=== PATIENT | female | born 1975 | race African-American/Black ===

== ENCOUNTER 2017-07-03 08:42 | Inpatient (IN) | payer MEDICAID ==
[~2017-07-03] VITALS: Ht 152.4 cm; Wt 46.0 kg
[2017-07-03] MEDS ORDERED: LORazepam 2 MG TABLET PO PRN (10:45)
[2017-07-03] MEDS ORDERED: HydrOXYzine PAMOATE 25 MG CAPSULE PO PRN (11:15)
[2017-07-03 11:32] VITALS: BP 120/90
[2017-07-03 12:14] VITALS: BP 122/84
[2017-07-03] MEDS: FLUoxetine HCL 20 MG CAPSULE PO SCH (12:14)
[2017-07-03 16:22] VITALS: BP 123/75
[2017-07-03] MEDS: ZOLPIDEM TARTRATE 10 MG TABLET PO PRN (21:22)
[2017-07-04 03:00] VITALS: BP 125/85
[2017-07-04 07:20] LABS: EOSINOPHILS % (AUTO) 4.2 % (1.0-6.0); HEMATOCRIT 38.7 % (36-46); HEMOGLOBIN 12.9 g/dL (12.0-16.0); LYMPHOCYTES # (AUTO) 2.8 K/uL (1.0-4.8); LYMPHOCYTES % (AUTO) 39.7 % (22.0-44.0); MEAN CORPUSCULAR HEMOGLOBIN 28.7 pg (26.0-34.0); MEAN CORPUSCULAR HGB CONC 33.3 G/dL (31.0-37.0); MEAN CORPUSCULAR VOLUME 86 fL (80-100); MONOCYTES # (AUTO) 0.6 K/uL (0.1-1.0); MONOCYTES % (AUTO) 8.6 % (2.0-9.0); NEUTROPHILS # (AUTO) 3.3 K/uL (1.8-7.7); NEUTROPHILS % (AUTO) 46.5 % (40.0-70.0); PLATELET COUNT (AUTO) 302 K/uL (150-450); RED BLOOD CELL COUNT(AUTO) 4.48 MIL/uL (4.00-5.20); RED CELL DISTRIBUTION WIDTH 14.5 % (11.5-14.5)
[2017-07-04 07:51] LABS: ALANINE AMINOTRANSFERASE 22 U/L (12-78); ALBUMIN 3.3 g/dL (3.4-5.0); ALKALINE PHOSPHATASE 64 U/L (46-116); ANION GAP 6 mmol/L (8-16); ASPARTATE AMINOTRANSFERASE 16 U/L (15-37); BILIRUBIN,TOTAL 0.6 mg/dL (0.1-1.0); CALCIUM, TOTAL 8.7 mg/dL (8.8-10.5); CARBON DIOXIDE 29 mmol/L (22-29); CHLORIDE 106 mmol/L (98-107); CHOL/HDL RATIO 2.4 (3.9-5.7); CHOLESTEROL 142 mg/dL (131-200); CREATININE 0.74 mg/dL (0.60-1.30); GLOMERULAR FILTR. RATE CALC > 60 mL/min (>60); GLUCOSE,RANDOM 80 mg/dL (70-110); HDL CHOLESTEROL 60 mg/dL (40-60); LDL CHOL (CALC.) 74 mg/dL (0-130); POTASSIUM 4.8 mmol/L (3.5-5.1); SODIUM SERUM 141 mmol/L (136-145); TOTAL PROTEIN, SERUM 6.4 g/dL (6.4-8.2); TRIGLYCERIDES 38 mg/dL (15-150); UREA NITROGEN, BLOOD 10 mg/dL (7-18)
[2017-07-04 07:57] LABS: HEMOGLOBIN A1C 5.5 % (4.5-6.2)
[2017-07-04 07:57] LABS: AMPHET/METH SCREEN,URINE NEGATIVE (NEGATIVE); BARBITURATE SCREEN, URINE NEGATIVE (NEGATIVE); BENZODIAZEPINES SCREEN,URINE NEGATIVE (NEGATIVE); CANNABINOID SCREEN,URINE POSITIVE (NEGATIVE); COCAINE SCREEN,URINE NEGATIVE (NEGATIVE); METHADONE SCREEN, URINE NEGATIVE (NEGATIVE); OPIATE SCREEN,URINE NEGATIVE (NEGATIVE); PHENCYCLIDINE SCREEN,URINE NEGATIVE (NEGATIVE)
[2017-07-04 08:09] LABS: APPEARANCE,URINE TURBID (CLEAR); BILIRUBIN,URINE NEGATIVE (NEGATIVE); GLUCOSE, URINE (UA) NEGATIVE (NEGATIVE); KETONES,URINE NEGATIVE (NEGATIVE); LEUKOCYTE ESTERASE ,URINE NEGATIVE (NEGATIVE); NITRATE,URINE NEGATIVE (NEGATIVE); OCCULT BLOOD,URINE NEGATIVE (NEGATIVE); PROTEIN,URINE NEGATIVE (NEGATIVE); UROBILINOGEN,URINE 0.2 mg/dL (<=1.0)
[2017-07-04 08:33] VITALS: BP 116/68
[2017-07-04 08:39] LABS: AMORPHOUS SEDIMENT,UR Many /LPF (None Seen); BACTERIA,URINE Few /HPF (None Seen); RBC,URINE None Seen /HPF (0-2); SQUAMOUS EPITHELIAL CELL,UR Many /LPF (None Seen); WBC,URINE 0-2 /HPF (0-5)
[2017-07-04] MEDS: FLUoxetine HCL 20 MG CAPSULE PO SCH (08:39)
[2017-07-04] MEDS: HALOPERIDOL 5 MG TABLET PO PRN (08:39)
[2017-07-04 08:40] LABS: CALCIUM OXALATE CRYSTALS,UR Rare /LPF (None Seen)
[2017-07-04 12:05] LABS: FREE T4 (FREE THYROXINE) 0.74 ng/dL (0.76-1.46); HCG,QUANTITATIVE < 1 mIU/mL (0-6); THYROID STIMULATING HORMONE 0.94 uIU/mL (0.36-3.74)
[2017-07-04] MEDS ORDERED: IBUPROFEN 600 MG TABLET PO PRN (14:00)
[2017-07-04] MEDS ORDERED: MAGNESIUM HYDROXIDE SUSPENSION 30 ML UDCUP PO PRN (14:00)
[2017-07-04] MEDS ORDERED: CloNIDine HCL 0.1 MG TABLET PO PRN (14:00)
[2017-07-04] MEDS ORDERED: BENZOCAINE/MENTHOL LOZENGE MM PRN (14:00)
[2017-07-04] MEDS ORDERED: PETROLATUM,WHITE 71 GM JELLY TP PRN (14:00)
[2017-07-04] MEDS ORDERED: ONDANSETRON HCL 4 MG TABLET PO PRN (14:00)
[2017-07-04] MEDS ORDERED: ALBUTEROL SULFATE HFA 90 MCG/PUFF 8 GM INHALER IH PRN (14:00)
[2017-07-04] MEDS ORDERED: BACITRACIN 28.4 GM OINTMENT TP PRN (14:00)
[2017-07-04] MEDS ORDERED: MAG HYDROX/AL HYDROX/SIMETH ES 30 ML SUSPENSION UDCUP PO PRN (14:00)
[2017-07-04] MEDS ORDERED: LOPERAMIDE HCL 2 MG CAPSULE PO PRN (14:00)
[2017-07-04 16:29] VITALS: BP 109/72
[2017-07-04] MEDS: ACETAMINOPHEN 325 MG TABLET PO PRN (23:00)
[2017-07-04] MEDS: ZOLPIDEM TARTRATE 10 MG TABLET PO PRN (23:09)
[2017-07-05 03:30] VITALS: BP 155/62
[2017-07-05] MEDS: FLUoxetine HCL 20 MG CAPSULE PO SCH (08:42)
[2017-07-05 09:23] VITALS: BP 118/70
[2017-07-05 17:01] VITALS: BP 122/78
[2017-07-05] MEDS: ZOLPIDEM TARTRATE 10 MG TABLET PO PRN (20:28)
[2017-07-06 06:08] VITALS: BP 116/80
[2017-07-06] MEDS: ACETAMINOPHEN 325 MG TABLET PO PRN (07:25)
[2017-07-06] MEDS: FLUoxetine HCL 20 MG CAPSULE PO SCH (08:44)
[2017-07-06 09:11] VITALS: BP 127/78
[2017-07-06 16:10] VITALS: BP 119/85
[2017-07-06] MEDS: ZOLPIDEM TARTRATE 10 MG TABLET PO PRN (20:41)
[2017-07-07 03:19] VITALS: BP 116/74
[2017-07-07] MEDS: HALOPERIDOL 5 MG TABLET PO PRN (03:22)
[2017-07-07] MEDS: FLUoxetine HCL 20 MG CAPSULE PO SCH (08:32)
[2017-07-07 08:47] VITALS: BP 109/69
[2017-07-07] MEDS ORDERED: FLUO-191 PO (09:58)
== END 2017-07-07 10:30 | disposition home or self-care (01) | DRG 751 ==
LOC: B2S 10:00
DX: F33.2 Major depressive disorder, recurrent severe without psychotic features (principal); R45.851 Suicidal ideations; G47.00 Insomnia, unspecified; F41.9 Anxiety disorder, unspecified; F10.10 Alcohol abuse, uncomplicated; F12.10 Cannabis abuse, uncomplicated; Z59.0 Homelessness; Z79.899 Other long term (current) drug therapy; Z71.51 Drug abuse counseling and surveillance of drug abuser; Z71.41 Alcohol abuse counseling and surveillance of alcoholic
CPT/HCPCS: 80307; 82306; 83036; 84439; 84443